=== PATIENT | female | born 1985 | race Caucasian/White ===

== ENCOUNTER 2019-01-21 09:07 | Observation (INO) | payer OTHER ==
[2019-01-21] MEDS: SOD CHLORIDE 0.9% 1,000 ML IV ×3 (11:10→19:50)
[2019-01-21] MEDS: VANCOMYCIN 1 GM 250 ML IVPB (11:12)
[2019-01-21] MEDS: BUPIVACAINE 0.25%/EPI (SDV) 30 ML INJ (12:32)
[2019-01-21] MEDS ORDERED: OXYCODONE/ACETAMINOPHEN (5/325) TAB PO ×2 (13:00)
[2019-01-21] MEDS ORDERED: HYDROmorphONE 1 MG/5 ML IV SYRINGE IV (13:00)
[2019-01-21] MEDS ORDERED: LIDOCAINE 2% (SDV) 5 ML INJ (13:06)
[2019-01-21] MEDS ORDERED: MIDAZOLAM 1 MG/ML 2 ML INJ (13:06)
[2019-01-21] MEDS ORDERED: ROCURONIUM 50 MG INJ (13:06)
[2019-01-21] MEDS ORDERED: ROPIVACAINE 0.5 % 30 ML VIAL (13:06)
[2019-01-21] MEDS ORDERED: PROPOFOL 20 ML (13:06)
[2019-01-21] MEDS ORDERED: ROPIVACAINE 0.2% 20 ML VIAL (13:17)
[2019-01-21] MEDS ORDERED: ONDANSETRON 4 MG INJ (13:27)
[2019-01-21] MEDS ORDERED: FAMOTIDINE 20 MG INJ (13:27)
[2019-01-21] MEDS ORDERED: FENTAnyl 50 MCG/ML VIAL (14:22)
[2019-01-21] MEDS ORDERED: SUGAMMADEX SODIUM 200 MG/2 ML VIAL IV (15:05)
[2019-01-21] MEDS ORDERED: LACTATED RINGER'S 1,000 ML IV (15:09)
[2019-01-21] MEDS: ONDANSETRON 4 MG INJ IV (15:21)
[2019-01-21] MEDS: HYDROmorphONE 1 MG/5 ML IV SYRINGE IV ×3 (15:22→16:29)
[2019-01-21] MEDS ORDERED: metroNIDAZOLE 500 MG/NS (PMX) 100 ML IVPB (15:30)
[2019-01-21] MEDS ORDERED: ONDANSETRON 4 MG INJ IV (15:30)
[2019-01-21] MEDS ORDERED: DEXTROSE 50% 50 ML SYRINGE IV ×2 (16:00)
[2019-01-21] MEDS ORDERED: GLUCOSE GEL 15 GRAM TUBE PO ×2 (16:00)
[2019-01-21] MEDS ORDERED: GLUCOSE GEL 15 GRAM TUBE BUCCAL (16:00)
[2019-01-21] MEDS ORDERED: GLUCAGON 1 MG INJ IM (16:00)
[2019-01-21] MEDS: INSULIN ASPART [NOVOLOG] 3 ML PEN SC ×2 (16:35→20:51)
[2019-01-21] MEDS: CIPROFLOXACIN 400MG/D5W 200 ML IVPB (17:04)
[2019-01-21] MEDS: ACETAMINOPHEN 325 MG TAB PO ×2 (17:39→21:12)
[2019-01-21] MEDS: METOCLOPRAMIDE 10 MG INJ IV (17:59)
[2019-01-21] MEDS ORDERED: INSULIN ASPART [NOVOLOG] 3 ML PEN SC (18:00)
[2019-01-21] MEDS: metroNIDAZOLE 500 MG/NS (PMX) 100 ML IVPB (18:26)
[2019-01-21] MEDS ORDERED: morphine 4 MG/ML VIAL IV (18:30)
[2019-01-21] MEDS ORDERED: HYDROCODONE/APAP (5/325) TAB PO (18:30)
[2019-01-21] MEDS: FAMOTIDINE 20 MG TAB PO (20:38)
[2019-01-21] MEDS: DOCUSATE SODIUM 100 MG CAP PO (20:38)
[2019-01-22] MEDS: ACCU-CHEK XX (02:29)
[2019-01-22] MEDS: metroNIDAZOLE 500 MG/NS (PMX) 100 ML IVPB ×2 (02:30→10:49)
[2019-01-22] MEDS: ACETAMINOPHEN 325 MG TAB PO (02:53)
[2019-01-22] MEDS: CIPROFLOXACIN 400MG/D5W 200 ML IVPB (03:50)
[2019-01-22 05:11] LABS: ADD MAN DIFF? NO
[2019-01-22 05:14] LABS: BASOPHILS % 0.2 % (0.0-2.0); EOSINOPHILS % 0.4 % (0.0-7.0); HEMATOCRIT 29.5 % (37.0-47.0); HEMOGLOBIN 9.9 g/dl (12.0-16.0); LYMPHOCYTES # 1.4 10^3/ul (0.8-2.9); LYMPHOCYTES % 14.1 % (15.0-51.0); MEAN CORPUSCULAR HEMOGLOBIN 28.7 pg (29.0-33.0); MEAN CORPUSCULAR HGB CONC 33.6 g/dl (32.0-37.0); MEAN CORPUSCULAR VOLUME 85.5 fl (82.0-101.0); MEAN PLATELET VOLUME 9.1 fl (7.4-10.4); MONOCYTE # 0.7 10^3/ul (0.3-0.9); MONOCYTES % 6.8 % (0.0-11.0); NEUTROPHIL # 7.6 10^3/ul (1.6-7.5); NEUTROPHILS % 78.2 % (39.0-77.0); PLATELET COUNT 243 10^3/UL (140-415); RED BLOOD COUNT 3.45 10^6/ul (4.20-5.40); RED CELL DISTRIBUTION WIDTH 12.1 % (11.5-14.5)
[2019-01-22 05:14] LABS: WHITE BLOOD COUNT 9.7 10^3/ul (4.8-10.8)
[2019-01-22 05:44] LABS: ALANINE AMINOTRANSFERASE 39 IU/L (13-69); ALBUMIN/GLOBULIN RATIO 1.03; ALKALINE PHOSPHATASE 46 IU/L (42-121); ANION GAP 4 (5-13); ASPARTATE AMINO TRANSFERASE 36 IU/L (15-46); BILIRUBIN,INDIRECT 0.5 mg/dl (0-1.1); BILIRUBIN,TOTAL 0.5 mg/dl (0.2-1.3); BLOOD UREA NITROGEN 9 mg/dl (7-20); CARBON DIOXIDE 24 mmol/L (21-31); CHLORIDE 110 mmol/L (97-110); Estimated GFR > 60 mL/min (>60); GLUCOSE 171 mg/dl (70-220); POTASSIUM 3.7 mmol/L (3.5-5.1); SODIUM 138 mmol/L (135-144); TOTAL PROTEIN 5.9 g/dl (6.1-8.1)
[2019-01-22] MEDS: HYDROCODONE/APAP (5/325) TAB PO ×2 (06:40→10:45)
[2019-01-22] MEDS: INSULIN ASPART [NOVOLOG] 3 ML PEN SC ×2 (07:50→12:48)
[2019-01-22] MEDS: FAMOTIDINE 20 MG TAB PO (08:43)
[2019-01-22] MEDS: DOCUSATE SODIUM 100 MG CAP PO (08:43)
== END 2019-01-22 14:23 | disposition home or self-care (01) ==
LOC: SDS 09:07 → REC 15:29 → MS1 16:56
PROVIDERS: Surgery
DX: K80.10 Calculus of gallbladder with chronic cholecystitis without obstruction (principal); E11.9 Type 2 diabetes mellitus without complications; F32.9 Major depressive disorder, single episode, unspecified; Z79.4 Long term (current) use of insulin
CPT/HCPCS: 47562; 80053; 82962; 85025; 87070; 87075; 87102; 87116; 88304; 99217

== ENCOUNTER 2019-02-11 19:05 | Emergency (ER) | payer OTHER ==
[2019-02-11] MEDS: DIPHENHYDRAMINE 50 MG INJ IM (19:59)
[2019-02-11] MEDS: DEXAMETHASONE 4 MG TAB PO (20:07)
== END 2019-02-11 20:16 | disposition home or self-care (01) ==
LOC: FTE 19:05
DX: H02.844 Edema of left upper eyelid (principal)
CPT/HCPCS: 96372; 99284-25